=== PATIENT | female | born 1990 | race Caucasian/White ===

== ENCOUNTER 2019-10-18 01:00 | Inpatient (IN) | payer OTHER ==
[~2019-10-18] VITALS: Ht 172.7 cm; Wt 59.0 kg
--- NOTE | 2019-10-18 01:02 | NUR ---
PT KRYSTAL BLS. TAKEN TO BED 6
--- NOTE | 2019-10-18 01:37 | NUR ---
Dr. Sawyer examining patient.
[2019-10-18 01:52] VITALS: BP 116/51
[2019-10-18 01:57] LABS: BASOPHILS # (AUTO) 0.1 K/uL (0.00-0.22); BASOPHILS % (AUTO) 0.8 % (0.0-2.0); EOSINOPHILS # (AUTO) 0.1 K/uL (0-0.4); EOSINOPHILS % (AUTO) 1.3 % (0.0-4.0); HEMATOCRIT 38.1 % (36-48); HEMOGLOBIN 12.8 g/dL (12.0-16.0); LYMPHOCYTES # (AUTO) 1.5 K/uL (2.5-16.5); LYMPHOCYTES % (AUTO) 18.8 % (20.5-51.1); MEAN CORPUSCULAR HEMOGLOBIN 32 pg (27-31); MEAN CORPUSCULAR HGB CONC 34 g/dL (33-37); MEAN CORPUSCULAR VOLUME 94.9 fL (80-94); MONOCYTES # (AUTO) 0.5 K/uL (0.8-1.0); MONOCYTES % (AUTO) 5.8 % (1.7-9.3); NEUTROPHILS # (AUTO) 5.8 K/uL (1.8-7.7); NEUTROPHILS % (AUTO) 73.3 % (42.2-75.2); PLATELET COUNT (AUTO) 210 K/uL (140-450); RED BLOOD CELL COUNT(AUTO) 4.01 MIL/uL (4.20-5.40); RED CELL DISTRIBUTION WIDTH 12.5 % (11.6-13.7); WHITE BLOOD COUNT (AUTO) 7.9 K/uL (4.8-10.8)
--- NOTE | 2019-10-18 02:06 | NUR ---
29 year old female biba from home for suicidal ideation. pt placed on 5150 hold by GLADYS. pt was seen by trying to hang herself using extension card. per EMS, pt stated that she has been having marital and life problems. pt was asked one on one why she tried to hang herself and is guarded with the conversation. pt is a/o x4. denies any s/sx. denies any injury or trauma. VSS. placed on suicidal precautions. pmhx: depression nka
[2019-10-18 02:11] LABS: ALBUMIN 3.8 g/dL (3.4-5.0); ANION GAP 12.1 (8-16); ASPARTATE AMINOTRANSFERASE 8 U/L (15-37); CARBON DIOXIDE 25.6 mmol/L (21-32); CHLORIDE 105 mmol/L (98-107); CREATININE 0.6 mg/dL (0.6-1.3); GFR ARICAN-AMERICAN 152 mL/min (>90); GLUCOSE 91 mg/dL (74-106); POTASSIUM 4.7 mmol/L (3.5-5.1); SODIUM SERUM 138 mmol/L (136-145); TOTAL BILIRUBIN 0.4 mg/dL (0.0-1.0); UREA NITROGEN, BLOOD 10 mg/dL (7-18)
--- NOTE | 2019-10-18 02:30 | NUR ---
SENT URINE TO THE LAB
[2019-10-18 02:55] LABS: BARBITURATE, URINE NEGATIVE ng/ml (NEG <=200); BENZODIAZEPINE, URINE NEGATIVE ng/mL (NEG <=200); CANNABINOID, URINE NEGATIVE ng/mL (NEG <=50); COCAINE, URINE NEGATIVE ng/mL (NEG <=300); OPIATE, URINE NEGATIVE ng/mL (NEG <=2000); PHENCYCLIDINE SCREEN,URINE NEGATIVE ng/mL (NEG <=25)
--- NOTE | 2019-10-18 03:23 | NUR ---
SENT COVID TEST TO THE LAB ORDERED.
--- NOTE | 2019-10-18 04:31 | NUR ---
Patient mother Sissy came to ER and requested to get an update about the pt. Spoke with the pt mother and gave her an update about the pt with the pt permission.
--- NOTE | 2019-10-18 05:49 | NUR ---
Pt awake and just laying down quietly in bed.No complain at this time. Not in any distress
--- NOTE | 2019-10-18 05:53 | NUR ---
Packet received for placement. Need actual Covid results for further placement. Will endorse to AM shift to monitor documentation
--- NOTE | 2019-10-18 06:30 | NUR ---
OBTAINED THE SPECIMEN FOR NOVEL RODRIGUEZ VIRUS & TOOK IT TO THE LAB ORDERED.
[2019-10-18] MEDS ORDERED: ACETAMINOPHEN 325 MG TAB PO PRN (06:50)
[2019-10-18] MEDS ORDERED: LORazepam 2 MG/ML VIAL IM/IVP PRN (06:50)
[2019-10-18] MEDS ORDERED: ZOLPIDEM 5 MG TAB PO PRN (06:50)
[2019-10-18] MEDS ORDERED: ONDANSETRON 4 MG/2 ML VIAL IVP PRN (06:50)
[2019-10-18] MEDS ORDERED: DOCUSATE SODIUM 100 MG GELCAP PO PRN (06:50)
[2019-10-18] MEDS: NACL 0.9% 1,000 ML IV SCH (06:50)
[2019-10-18] MEDS ORDERED: HYDROcodone/APAP 5/325 MG 1 TAB TAB PO PRN (06:50)
[2019-10-18] MEDS ORDERED: MORPHINE SULFATE 2 MG/ML SYR IVP PRN (06:50)
--- NOTE | 2019-10-18 06:53 | NUR ---
[facility] day shift to continue actively looking for placement for this pt. Will followup with potential facilities today. Will contact with any updates. No openings per hotel night auditor report.
[2019-10-18 07:15] VITALS: BP 112/64
--- NOTE | 2019-10-18 07:15 | NUR ---
RECEIVED REPORT FROM EMERGENCY ROOM FOR CONTINUITY OF CARE. PATIENT IN STABLE CONDITION. RESPIRATIONS EVEN AND UNLABORED. SAFETY MEASURES IN PLACE. SITTER AT BEDSIDE. BED IN LOW POSITION. WILL CONTINUE TO MONITOR.
--- NOTE | 2019-10-18 07:15 | NUR ---
Patient will be admitted to care of DR WEST. Admited to MED SURG. Will go to room 109-B. Belongings list completed. Report to EDITH GILMORE.
--- NOTE | 2019-10-18 09:00 | NUR ---
X-RAY AT BEDSIDE. PATIENT IN STABLE CONDITION.
--- NOTE | 2019-10-18 09:20 | NUR ---
DISCHARGE PLANNING: BHAVESH CONTACTED [facility] AND SPOKE TO LUÍS [phone] TO VERIFY THAT 5150 AND CLINICALS WERE RECEIVED. PER LUÍS, BOTH WERE RECEIVED AND [facility] IS SEEKING PLACEMENT FOR PATIENT. Addendum: 10/20/19 at 1012 by Jordon Jameson BHAVESH FOLLOWED UP WITH [facility] REGARDING PLACEMENT FOR PATIENT. BHAVESH SPOKE WITH DEIRDRE [phone]. DEIRDRE STATED SHE HAS FAXED OUT TO SEVERAL FACILITIES AND IS AWAITING CORRESPONDENCE. BHAVESH WILL FOLLOW UP NEEDED. Addendum: 10/20/19 at 1251 by Jordon Jameson BHAVESH WAS CONTACTED BY DEIRDRE FROM [facility]. PER DEIRDRE, PATIENT WAS ACCEPTED TO [facility] WITH ACCEPTING PHYSICIAN: DR. FULLER TO UNIT 5. BHAVESH CONTACTED [facility] AND SPOKE TO [facility] AND SCHEDULED TRANSPORTATION FOR 1430 PER EDITH BUTLER'S REQUEST. RN AND CHARGE NURSE WAS NOTIFIED. Addendum: 10/20/19 at 1507 by Jordon Jameson SS SW MET WITH PATIENT AND PROVIDED COUNSELING AT BEDSIDE. PATIENT WAS IN DISTRESS REGARDING BEING TRANSFERRED. SW PROVIDED EDUCATION ON 5150 HOLD AND ITS MEANING. SW PROVIDED EDUCATION ON GROUNDING TECHNIQUES AND USED MOTIVATIONAL INTERVIEWING TO IDENTIFY ROOT OF PATIENT'S ANXIETY. SW EXPLAINED THAT PATIENT IS BEING TRANSFERRED AND PROCESS OF 5150. PATIENT VERBALIZED UNDERSTANDING AND APPRECIATION.
--- NOTE | 2019-10-18 09:20 | NUR ---
PATIENT HAS BEEN SCREENED AND CATEGORIZED LOW NUTRITION RISK. PATIENT WILL BE SEEN WITHIN 7 DAYS OF ADMISSION. 10/24/[address]
[2019-10-18 09:24] LABS: BASOPHILS % (AUTO) 0.5 % (0.0-2.0); EOSINOPHILS # (AUTO) 0.1 K/uL (0-0.4); EOSINOPHILS % (AUTO) 0.9 % (0.0-4.0); HEMATOCRIT 39.1 % (36-48); HEMOGLOBIN 13.2 g/dL (12.0-16.0); LYMPHOCYTES # (AUTO) 1.4 K/uL (2.5-16.5); LYMPHOCYTES % (AUTO) 19.6 % (20.5-51.1); MEAN CORPUSCULAR HEMOGLOBIN 32 pg (27-31); MEAN CORPUSCULAR HGB CONC 34 g/dL (33-37); MEAN CORPUSCULAR VOLUME 95.3 fL (80-94); MONOCYTES # (AUTO) 0.4 K/uL (0.8-1.0); MONOCYTES % (AUTO) 5.7 % (1.7-9.3); NEUTROPHILS # (AUTO) 5.1 K/uL (1.8-7.7); NEUTROPHILS % (AUTO) 73.3 % (42.2-75.2); PLATELET COUNT (AUTO) 217 K/uL (140-450); RED CELL DISTRIBUTION WIDTH 12.6 % (11.6-13.7); WHITE BLOOD COUNT (AUTO) 6.9 K/uL (4.8-10.8)
[2019-10-18 09:36] LABS: ANION GAP 15.1 (8-16); CREATININE 0.7 mg/dL (0.6-1.3); POTASSIUM 4.1 mmol/L (3.5-5.1)
[2019-10-18 09:45] LABS: PROTHROMBIN TIME 10.3 secs (10.8-13.4)
[2019-10-18 10:52] LABS: CHOL/HDL RATIO 2.5 (1-4.5); FREE T4 (FREE THYROXINE) 1.11 ng/dL (0.76-1.46); PHOSPHORUS 3.2 mg/dL (2.5-4.9); THYROID STIMULATING HORMONE 1.4 uIU/mL (0.34-3.74)
--- NOTE | 2019-10-18 12:20 | NUR ---
GAVE PATIENT LUNCH PLATE. PATIENT IN STABLE CONDITION. SITTER AT BEDSIDE.
--- NOTE | 2019-10-18 14:14 | NUR ---
PATIENT SLEEPING AT THIS TIME. RESPIRATIONS EVEN AND UNLABORED. SITTER AT BEDSIDE.
--- NOTE | 2019-10-18 14:47 | NUR ---
CHINESE LANGUAGE PROFESSOR NOTE: Patient's Orientation Person Situation Place Time Information Provided By PATIENT Comments SW MET WITH PATIENT AT BEDSIDE TO COMPLETE ASSESSMENT. PATIENT'S AFFECT WAS SOMBER AND PATIENT'S THOUGHT PROCESS WAS LINEAR. Outboard Motor Assembler, Realtionship and Phone Number YIMI FERRO [phone] [facility] Power of Coat Tailor No Does Patient Have a POLST No Identifying Problems No Social Work Triggers Is A Social Work Consult Needed No Mandate Report Filed No Explanation Of Identifying Problems PATIENT IS A 29-YEAR-OLD FEMALE ADMITTED FOR SUICIDAL IDEATION 0980. PATIENT HAS NO REPORTED PMHX. SW INQUIRED ABOUT WHAT LED TO HOSPITALIZATION. PATIENT STATED THAT SHE WAS ADMITTED TO [facility] AN INPATIENT VOLUNTARILY DUE TO DISPUTE WITH . PATIENT STATED THAT SHE WAS DISCHARGED 1 WEEK AGO. PATIENT STATED THAT SHE WRAPPED A PHONE RAT TRAPPER AROUND HER NECK BUT STATED SHE HAD NO INTENT TO HURT HERSELF. PATIENT DENIED S/I AND H/I. PATIENT STATED THAT SHE WAS SEEKING THE ATTENTION OF HER . PATIENT ALSO DENIED CURRENT S/I AND H/I. PATIENT STATED SHE RECEIVES WEEKLY THERAPY FROM [facility] AND IS PRESCRIBED ZOLOFT. PATIENT STATED SHE WAS DIAGNOSED WITH MAJOR DEPRESSIVE DISORDER. SW PROVIDED COUNSELING TO PATIENT AND USED MOTIVATIONAL INTERVIEWING TECHNIQUES THROUGH DISCUSSION. PATIENT VERBALIZED APPRECIATION AND INTENT TO FINDING A PSYCHIATRIST TO ADJUST MEDICATION. PATIENT STATED SHE HAS A STRONG SUPPORT SYSTEM AND WILL ADDRESS MENTAL HEALTH ISSUES WITH HER THERAPIST. SW OFFERED RELEVANT RESOURCES, BUT PATIENT REFUSED. Admitted From Home Pre-Admission Level Of Functioning Status Independent/Ambulatory Prior Resources/Services Used In Last 12 Months Psychiatry Services Prior DME No Prior DME Used Living Situation Lives W/Significant Other House Patient Had Caregiver No Home Support No Caregiver Issues Financial Issues No Known Financial Issue Referral To The Financial Counselor Needed Yes Factors/Needs Psych Placement/Referral Explanation And Or Other Factors Affecting/Possible DC Needs PLACEMENT WOULD DEPEND ON PSYCH CONSULT. Pt/Rep Participated In Discharge Plan Yes Patient/Family Agress With Discharge Plan Yes Discharge Plan Comments TENTATIVE DISCHARGE PLAN IS FOR PATIENT TO BE DISCHARGED TO PSYCHIATRIC FACILITY. DC Plan Status Initiated
[2019-10-18 16:00] VITALS: BP 94/54
--- NOTE | 2019-10-18 16:52 | NUR ---
PATIENT MOTHER CALLED. PATIENT GIVEN PHONE AT THIS TIME. SITTER AT BEDSIDE.
[2019-10-18] MEDS ORDERED: BUPR300T70 PO (17:49)
[2019-10-18] MEDS ORDERED: SERT50TA PO (17:49)
--- NOTE | 2019-10-18 19:15 | NUR ---
GAVE REPORT TO SWITCHING CLERK NURSE AMANDA FOR CONTINUITY OF CARE. PATIENT IN STABLE CONDITION.
--- NOTE | 2019-10-18 19:46 | NUR ---
RECEIVED BEDSDIE FROM DAY SHIFT NURSE. PT IN BED RESTING. PT AAOX4, AMBULATORY, AND ABLE TO MAKE NEEDS KNOWN. RESPIRATIONS ARE EVEN AND UNLABORED TO ROOM AIR. SKIN IS WARM, DRY, AND INTACT. ABDOMEN IS SOFT AND NON-TENDER. PT DENIES ANY PAIN OR DISCOMFORT AT THIS TIME. POC DISCUSSED, PT VERBALIZED UNDERSTANDING. SAFETY MEASURES IN PLACE. SITTER AT BEDSIDE. WILL CONTINUE TO MONITOR.
--- NOTE | 2019-10-18 21:10 | NUR ---
CC still aware of patient. Pending Covid results before placement
--- NOTE | 2019-10-18 22:02 | NUR ---
ROUNDS MADE. PT IN BED DOING SUDOKU PUZZLE. PT DENIES ANY PAIN OR DISCOMFORT AT THIS TIME. PT KEPT COMFORTABLE. NO REQUESTS MADE. SAFETY MEASURES IN PLACE. SITTER AT BEDSIDE. WILL CONTINUE TO MONITOR.
[2019-10-19] VITALS: BP 99/66
--- NOTE | 2019-10-19 00:19 | NUR ---
VITAL SIGNS STABLE. PT IN BED READING MAGAZINE. NO S/SX OF DISTRESS NOTED. NO REQUESTS MADE. SITTER AT BEDSIDE. SAFETY MEASURES IN PLACE. WILL CONTINUE TO MONITOR.
--- NOTE | 2019-10-19 02:07 | NUR ---
ROUNDS MADE. PT ASLEEP. VISIBLE CHEST RISE AND FALL NOTED. NO S/SX OF DISTRESS NOTER. PT KEPT COMFORTABLE. SAFETY MEASURES IN PLACE. SITTER AT BEDSIDE. WILL CONTINUE TO MONITOR
--- NOTE | 2019-10-19 04:02 | NUR ---
PT ASLEEP, SITTER AT BEDSIDE. NO S/SX OF DISTRESS NOTED AT THIS TIME. PT KEPT COMFORTABLE. WILL CONTINUE TO MONITOR.
--- NOTE | 2019-10-19 06:15 | NUR ---
CALLED DR CARREON AND REPORTED PT HAS BURNING SENSATION WHILE URINATING. AND THAT PT ALSO TAKES SERTRALINE 50MG EVERY NIGHT AT HOME. DR INSTRUCTED TO ORDER MACROBID 100MG TWICE A DAY PO DAILY FOR 5 DAYS AND SERTRALINE 50MG PO DAILY AT NIGHT. ORDERS PUT IN INSTRUCTED. ALSO FOLLOWED UP WITH DR BENITEZ REGARDING CONSULT. WILL CONTINUE TO MONITOR.
[2019-10-19 06:47] LABS: HEMATOCRIT 35.5 % (36-48); HEMOGLOBIN 12.2 g/dL (12.0-16.0); MEAN CORPUSCULAR HEMOGLOBIN 32 pg (27-31); MEAN CORPUSCULAR HGB CONC 34 g/dL (33-37); MEAN CORPUSCULAR VOLUME 93.9 fL (80-94); PLATELET COUNT (AUTO) 213 K/uL (140-450); RED BLOOD CELL COUNT(AUTO) 3.78 MIL/uL (4.20-5.40); RED CELL DISTRIBUTION WIDTH 12.4 % (11.6-13.7); WHITE BLOOD COUNT (AUTO) 8.1 K/uL (4.8-10.8)
[2019-10-19] MEDS: NACL 0.9% 1,000 ML IV SCH (06:50)
[2019-10-19 06:57] LABS: ANION GAP 11.4 (8-16); CREATININE 0.6 mg/dL (0.6-1.3); POTASSIUM 3.4 mmol/L (3.5-5.1)
[2019-10-19 07:11] LABS: MAGNESIUM 1.8 mg/dL (1.8-2.4); PHOSPHORUS 4.1 mg/dL (2.5-4.9)
--- NOTE | 2019-10-19 07:15 | NUR ---
RECEIVED REPORT FROM NIGHT NURSE FOR CONTINUITY OF CARE, PT IS STABLE, NO SIGNS OF DISTRESS NOTED, RESPIRATIONS ARE EVEN AND UNLABORED ON ROOM AIR, NO IV ACCESS, PT ON 5150 HOLD, SITTER AT BEDSIDE, SKIN INTACT, INTRODUCED SELF, BED IN LOW POSITION, SAFETY MEASURES IN PLACE, ALL NEEDS MET, WILL CONTINUE TO MONITOR
--- NOTE | 2019-10-19 07:23 | NUR ---
Call Center day shift is aware of patient and will continue to monitor notes and labs for psych placement. Patient is still pending COVID PCR result.
--- NOTE | 2019-10-19 07:32 | NUR ---
ENDORSED TO DAY SHIFT NURSE FOR CONTINUITY OF CARE.
[2019-10-19 08:00] VITALS: BP 108/65
[2019-10-19] MEDS: buPROPion 150 MG TABER PO SCH (08:45)
[2019-10-19] MEDS: NITROFURANTOIN 100 MG CAP PO SCH ×2 (08:45→17:14)
--- NOTE | 2019-10-19 08:49 | NUR ---
ADMINISTERED SCHEDULED MEDICATION, MEDICATION EDUCATION PROVIDED, PT VERBALIZED UNDERSTANDING, PT TOLERATED WELL, PT IS STABLE, NO SIGNS OF DISTRESS NOTED, SITTER AT DOOR, WILL CONTINUE TO MONITOR.
[2019-10-19 09:19] LABS: BASOPHILS # (AUTO) 0.1 K/uL (0.00-0.22); BASOPHILS % (AUTO) 0.5 % (0.0-2.0); EOSINOPHILS % (AUTO) 1.1 % (0.0-4.0); LYMPHOCYTES # (AUTO) 2.1 K/uL (2.5-16.5); LYMPHOCYTES % (AUTO) 25.2 % (20.5-51.1); MONOCYTES # (AUTO) 0.6 K/uL (0.8-1.0); MONOCYTES % (AUTO) 6.9 % (1.7-9.3); NEUTROPHILS # (AUTO) 5.4 K/uL (1.8-7.7); NEUTROPHILS % (AUTO) 66.3 % (42.2-75.2)
--- NOTE | 2019-10-19 10:10 | NUR ---
DR. BENITEZ TEXTED THAT HE WILL BE HERE TO SEE PT AROUND 2-3 PM TODAY. RN ASSIGNED MADE AWARE.
--- NOTE | 2019-10-19 11:06 | NUR ---
INFORMED PT WHEN DR BENITEZ WILL BE HERE TO SEE HER, PT VERBALIZED UNDERSTANDING, PT IS STABLE, NO SIGNS OF DISTRESS NOTED, RESPIRATION ARE EVEN AND UNLABORED ON ROOM AIR, SITTER AT DOOR.
[2019-10-19] MEDS ORDERED: POTASSIUM CHLORIDE 10 MEQ TABER PO SCH (12:39)
--- NOTE | 2019-10-19 13:24 | NUR ---
ADMINISTERED SCHEDULED MEDICATION, MEDICATION EDUCATION PROVIDED, PT VERBALIZED UNDERSTANDING, PT TOLERATED WELL, PT IS STABLE, NO SIGNS OF DISTRESS NOTED, SITTER OUTSIDE DOOR.
--- NOTE | 2019-10-19 15:00 | NUR ---
PT SITTING IN BED READING A BOOK, NO SIGNS OF DISTRESS NOTED, PT IS STABLE, SITTER BY BEDSIDE.
[2019-10-19 16:00] VITALS: BP 110/70
--- NOTE | 2019-10-19 17:15 | NUR ---
ADMINISTERED SCHEDULED MEDICATION, MEDICATION EDUCATION PROVIDED, PT VERBALIZED UNDERSTANDING, PT TOLERATED MEDICATION, PT IS STABLE, NO SIGNS OF DISTRESS NOTED, SITTER AT DOOR.
--- NOTE | 2019-10-19 19:15 | NUR ---
ENDORSE PT TO NIGHT NURSE PT FOR CONTINUITY OF CARE, PT IS STABLE
--- NOTE | 2019-10-19 19:18 | NUR ---
RECEIVED BEDSIDE REPORT FORM AM NURSE. PT IS STABLE, AAOX4, AMBULATORY, C/C OF SUICIDAL IDEATION, HAS SITTER. PT SEEN COMFORTABLY SITTING IN BED READING BOOK. RESPIRATIONS EVEN AND UNLABORED, NO SOB NOTED. SKIN INTACT AND WARM TO TOUCH. NO C/O OF PAIN OR DISCOMFORT AT THIS TIME. COMFORT AND SAFETY MEASURES IN PLACED. CALL LIGHT WITHIN REACH. WILL CONTINUE TO MONITOR.
--- NOTE | 2019-10-19 19:50 | NUR ---
YIMI , CALLED. HE SAID THAT PT NOT EATING WELL. I SAID I WILL ASKED PT WHAT SHE WANTS TO EAT.HE WAITED FOR ME AND PT SAID SHE DOESN'T WANT ANYTHING AT THIS TIME. TO BRING BOOK FOR PT SHE REQUESTED.
[2019-10-19] MEDS ORDERED: SERTRALINE 50 MG TAB PO SCH (21:00)
--- NOTE | 2019-10-19 21:24 | NUR ---
Called the following facilities; [facility]no beds [facility], will have someone from Intake call back [facility], packet faxed for possible review
--- NOTE | 2019-10-19 21:39 | NUR ---
Received call from Kimmy at [facility]-bed not available. they will keep packet for the AM for any discharges
--- NOTE | 2019-10-19 21:40 | NUR ---
[facility]-packet fax for possible review
--- NOTE | 2019-10-19 22:00 | NUR ---
PT COMFORTABLY IN BED, READING HER BOOK. DENIES ANY PAIN/DISCOMFORT. SITTER AT BEDSIDE. CALL LIGHT WITHIN REACH. WILL CONTINUE TO MONITOR.
--- NOTE | 2019-10-19 23:20 | NUR ---
URINE SPECIMEN COLLECTED. SEND TO LAB. WILL FOLLOW UP RESULT.
[2019-10-19 23:45] VITALS: BP 105/77
--- NOTE | 2019-10-20 00:30 | NUR ---
ROUNDS DONE, PT ASLEEP IN BED COMFORTABLY. NOT IN DISTRESS. NO SOB. SAFETY MEASURES IN PLACED. SITTER BY THE DOOR. CALL LIGHT WITHIN REACH. WILL CONTINUE TO MONITOR.
--- NOTE | 2019-10-20 02:00 | NUR ---
CHECKED ON PT. SLEEPING . NO S/S OF ANY DISCOMFORT NOTED. 1:1 SITTER IN ATTENDANCE.
--- NOTE | 2019-10-20 04:20 | NUR ---
MADE ROUNDS. PT STILL ASLEEP. NO DISCOMFORT NOTED.
--- NOTE | 2019-10-20 06:20 | NUR ---
PT SEEN SLEEPING IN BED, NO SOB NOTED. NOT IN DISTRESS. 1:1 SITTER IN ATTENDANCE. SAFETY MEASURES IN PLACED. WILL CONTINUE TO MONITOR.
[2019-10-20 06:21] LABS: BASOPHILS % (AUTO) 0.5 % (0.0-2.0); EOSINOPHILS # (AUTO) 0.1 K/uL (0-0.4); EOSINOPHILS % (AUTO) 1.5 % (0.0-4.0); HEMOGLOBIN 12.4 g/dL (12.0-16.0); LYMPHOCYTES % (AUTO) 26.2 % (20.5-51.1); MEAN CORPUSCULAR HEMOGLOBIN 32 pg (27-31); MEAN CORPUSCULAR HGB CONC 33 g/dL (33-37); MEAN CORPUSCULAR VOLUME 95.4 fL (80-94); MONOCYTES # (AUTO) 0.6 K/uL (0.8-1.0); NEUTROPHILS % (AUTO) 63.8 % (42.2-75.2); PLATELET COUNT (AUTO) 205 K/uL (140-450); RED BLOOD CELL COUNT(AUTO) 3.88 MIL/uL (4.20-5.40); RED CELL DISTRIBUTION WIDTH 12.6 % (11.6-13.7); WHITE BLOOD COUNT (AUTO) 7.8 K/uL (4.8-10.8)
[2019-10-20] MEDS: NACL 0.9% 1,000 ML IV SCH (06:50)
--- NOTE | 2019-10-20 07:29 | NUR ---
ENDORSED PT IN STABLE CONDITION TO AM NURSE.
--- NOTE | 2019-10-20 07:30 | NUR ---
RECEIVED REPORT FROM [facility] NURSE, ASSUMED CARE. PT RESTING COMFORTABLY IN BED WITH NO S/S OF PAIN AND/OR DISTRESS AT THIS TIME. NO IV ACCESS PER PT REQUEST. PERSONAL BELONGINGS, BEDSIDE TABLE, CALL LIGHT WITHIN REACH. WILL CONTINUE TO MONITOR.
[2019-10-20 08:00] VITALS: BP_SYST 103; BP_SYST 98; BP_DIAS 46; BP_DIAS 62
[2019-10-20] MEDS: NITROFURANTOIN 100 MG CAP PO SCH (08:54)
[2019-10-20] MEDS: buPROPion 150 MG TABER PO SCH (08:54)
--- NOTE | 2019-10-20 11:41 | NUR ---
Received change of shift report earlier. Spoke with Emerson /BHAVESH and confirmed we are still actively monitoring for bed placement. Previous facilities have been reached. [facility]/ [facility]/ [facility] and no beds have been available at this time. Intake was also sent to [facility] will review and call facility for information. Will keep facility updated with any information as it transpires.
--- NOTE | 2019-10-20 12:22 | NUR ---
Patient has been accepted to [facility] under the care of Dr. Zavala. Patient can be received once nurse is ready. Patient will be going to Unit 5
[2019-10-20 12:33] LABS: BILIRUBIN,URINE NEGATIVE (NEGATIVE); BLOOD, URINE NEGATIVE (NEGATIVE); COLOR,URINE YELLOW (YELLOW); LEUKOCYTE ESTERASE ,URINE TRACE (NEGATIVE); NITRITE, URINE NEGATIVE (NEGATIVE); PH,URINE 6.5 (5.0-9.0); UGLUCOSE NEGATIVE (NEGATIVE)
[2019-10-20 12:39] LABS: APPEARANCE,URINE SLIGHTLY HAZY (CLEAR)
[2019-10-20 13:01] LABS: RBC,URINE NONE SEEN /HPF (0-5); WBC,URINE 0-5 /HPF (0-5)
[2019-10-20] MEDS ORDERED: BUPR-160 PO (13:07)
[2019-10-20] MEDS ORDERED: SERT50TA PO (13:07)
[2019-10-20 13:49] VITALS: BP 103/62
--- NOTE | 2019-10-20 14:30 | NUR ---
PT DISCHARGED WITH BELONGINGS VIA [facility] FROM [facility]. PAPERWORK FOR FACILITY GIVEN TO [facility] STAFF. Addendum: 10/20/19 at 1524 by Asif Bang RN PT REQUESTED TO NOT HAVE INFORMED OF DISCHARGE.
== END 2019-10-20 14:30 | DRG 885 ==
LOC: MED 01:00 → MTU 06:53
PROVIDERS: ADMIT Family Medicine; ATTEND Family Medicine
DX: F33.2 Major depressive disorder, recurrent severe without psychotic features (principal); R45.851 Suicidal ideations; Z20.828 Contact with and (suspected) exposure to other viral communicable diseases; E87.6 Hypokalemia; F41.1 Generalized anxiety disorder; Z79.899 Other long term (current) drug therapy; Z81.8 Family history of other mental and behavioral disorders
CPT/HCPCS: 36415; 71045; 80048; 80053; 80305; 81001; 81025; 82150; 83036; 83690; 83735; 83880; 84100; 84439; 84443; 84484; 84703; 85025; 85610; 85730; 87081; 99291; G0482; Q0092; U0003-CS

== ENCOUNTER 2022-12-07 09:15 | Day surgery (SDC) | payer OTHER ==
[~2022-12-07] VITALS: Ht 162.6 cm; Wt 70.8 kg
[~2022-12-07 09:15] MED LIST: BUPR-160 PO; BUPR300T70 PO; SERT50TA PO
[2022-12-07] MEDS ORDERED: fentaNYL citrate 0.05 MG/ML VIAL ONE (10:16)
[2022-12-07] MEDS ORDERED: diphenhydrAMINE 50 MG/ML VIAL ONE (10:16)
[2022-12-07] MEDS ORDERED: MIDAZOLAM 5 MG/5 ML VIAL ONE (10:17)
[2022-12-07] MEDS ORDERED: LIDOCAINE 2% 100 MG/5 ML UJET TP ONE (10:17)
[2022-12-07] MEDS ORDERED: MIDAZOLAM 2 MG/2 ML VIAL IVP ONE (13:00)
[2022-12-07] MEDS ORDERED: fentaNYL citrate 0.05 MG/ML VIAL IVP ONE ×2 (13:00→13:20)
== END 2022-12-07 11:35 | disposition home or self-care (01) ==
LOC: MDS 09:15 → MMU 09:16 → MDS 11:35
PROVIDERS: ATTEND Internal Medicine Gastroenterology
DX: Z12.11 Encounter for screening for malignant neoplasm of colon (principal); K60.3 Anal fistula; F32.A Depression, unspecified; F41.9 Anxiety disorder, unspecified; G43.909 Migraine, unspecified, not intractable, without status migrainosus; Z80.0 Family history of malignant neoplasm of digestive organs; Z98.890 Other specified postprocedural states
CPT/HCPCS: 45378; J2250; J3010; J7030; J1200